=== PATIENT | female | born 1965 | race Caucasian/White ===

== ENCOUNTER → 2016-09-23 | Outpatient (CLI) | payer OTHER ==
[~2016-09-23] MED LIST: ACET-732; AZEL30SP2 NS; CYCL5TAB PO; DICL75TA PO; ESTR2TAB23 PO; HYOS0.3716 PO; LEVO75TA57 PO; MOME17SP7 NS; MULT-806 PO; P EP PO; RIZA10TA16 PO; TEMA15CA PO; [UNRECOGNIZED DRUG - CODE] RC
--- NOTE | 2016-09-24 08:53 | DI ---
Indication: ITS.REASON: STENOSIS, LOW BACK PAIN PROCEDURE: LUMBAR SPINE COMP W/O BEND: Encounter: Initial Comparison: May 13, 2016 Findings: Posterior L5-S1 spinal fusion hardware with bilateral pedicle screws and rods. No evidence of hardware loosening or failure. No acute fracture or subluxation seen. Epidural Stimulator type device also noted. Disk spaces are maintained. No obvious pars defects on the oblique views. Impression: Interval posterior spinal fusion without evidence of complication. .
== END ==
LOC: IMA 16:27
PROVIDERS: ATTEND Neurological Surgery
DX: M48.06 Spinal stenosis, lumbar region (principal); Z98.1 Arthrodesis status